=== PATIENT | female | born 1980 | race African-American/Black ===

== ENCOUNTER 2016-06-10 13:09 | Emergency (ER) | payer OTHER ==
[~2016-06-10] VITALS: Ht 165.1 cm; Wt 84.8 kg
[~2016-06-10 13:09] MED LIST: DOCU-25 PO; FERROUS SULFATE PO; GABA300C PO; HYDR500C2 PO; HYDR8TAB2 PO; INSU100I4 SQ; INSU100V7 SQ; Polyvinyl Alcohol RIGHTEYE
[2016-06-10 13:28] VITALS: BP 129/78
[2016-06-10] MEDS ORDERED: HYDROMORPHONE 1 MG/1 ML DISP.SYRIN IM ONE (14:30)
[2016-06-10] MEDS ORDERED: diphenhydrAMINE HCL 50 MG/ML VIAL IM ONE (14:30)
[2016-06-10] MEDS ORDERED: ONDANSETRON 4 MG TAB.RAPDIS SL ONE (14:30)
[2016-06-10] MEDS ORDERED: IV NS 0.9% 1,000 ML BAG IV ONE (14:30)
== END 2016-06-10 14:38 | disposition left against medical advice (07) ==
LOC: ER 13:10
DX: G89.29 Other chronic pain (principal); M25.561 Pain in right knee; M25.562 Pain in left knee; E11.9 Type 2 diabetes mellitus without complications; F17.200 Nicotine dependence, unspecified, uncomplicated; Z88.0 Allergy status to penicillin; Z88.6 Allergy status to analgesic agent; Z88.5 Allergy status to narcotic agent; Z88.8 Allergy status to other drugs, medicaments and biological substances
CPT/HCPCS: 99281; A4606; Z7610; Z7502

== ENCOUNTER 2017-09-11 15:06 | Emergency (ER) | payer MEDICAID, OTHER ==
[~2017-09-11] VITALS: Ht 167.6 cm; Wt 78.0 kg
[~2017-09-11 15:06] MED LIST changes: +DOCU-141 PO; -DOCU-25 PO
[2017-09-11] MEDS ORDERED: ACETAMINOPHEN 325 MG TABLET ONE (16:44)
--- NOTE | 2017-09-11 16:49 | NUR ---
PT ELOPED PRIOR BEFORE THE ER PHYSICIAN SEES THE PATIENT
[2017-09-11 16:56] VITALS: BP 124/81
[2017-09-11] MEDS ORDERED: ACETAMINOPHEN 650 MG/20.3 ML UDC PO ONE (17:00)
== END 2017-09-11 16:58 | disposition left against medical advice (07) ==
LOC: ER 15:11
DX: G89.29 Other chronic pain (principal); D57.80 Other sickle-cell disorders without crisis; F17.200 Nicotine dependence, unspecified, uncomplicated; Z88.0 Allergy status to penicillin; Z86.718 Personal history of other venous thrombosis and embolism; Z88.5 Allergy status to narcotic agent; Z88.6 Allergy status to analgesic agent; Z79.4 Long term (current) use of insulin
CPT/HCPCS: A4606; Z7610